=== PATIENT | female | born 1970 | race Caucasian/White ===

== ENCOUNTER 2016-12-17 06:45 | Outpatient (CLI) | payer OTHER ==
[2016-12-17 08:24] LABS: Hemoglobin 15.6 g/dL (12.0-16.0); Mean Corpuscular HGB CONC 32.8 g/dL (32.0-36.0); Mean Corpuscular Volume 97.7 fl (81.0-99.0); Platelet Count 318 thou/uL (130-400); RBC Distribution Width 11.3 % (11.5-14.5); Red Blood Cell (RBC) Count 4.89 mill/uL (4.20-5.40); White Blood Cell (WBC) Count 10.3 thou/uL (4.8-10.8)
[2016-12-17 08:39] LABS: Anion Gap 16 mmol/L (10-20); BUN (Urea Nitrogen) 13 mg/dL (7.0-18.7); Calc. Creatinine Clearance 0 mL/min (70-130); Calcium 9.7 mg/dL (7.8-10.44); Carbon Dioxide 24 mmol/L (22-29); Chloride 102 mmol/L (98-107); Estimated GFR-MDRD 74; Glucose 101 mg/dL (70-105); Potassium 4.3 mmol/L (3.5-5.1); Sodium 138 mmol/L (136-145)
[2016-12-17 08:59] LABS: Free T4 (Free Thyroxine) 0.9 ng/dL (0.70-1.48); Thyroid Stimulating Hormone 2.1901 uIU/mL (0.35-4.94); Vitamin D, 25 Hydroxy 13.8 ng/mL (> 30.0)
[2016-12-17 09:32] LABS: ALT (SGPT) 15 U/L (0-55); AST (SGOT) 13 U/L (5-34); Albumin 4.4 g/dL (3.5-5.0); Alkaline Phosphatase 57 U/L (40-150); Bilirubin, Direct 0.1 mg/dL (0.1-0.3); Bilirubin, Total 0.3 mg/dL (0.2-1.2); Protein, Total 6.9 g/dL (6.0-8.3)
[2016-12-17 10:02] LABS: Cardiac Risk 4.4 (Less than 4.5); Cholesterol 191 mg/dL (< 200 Desired); HDL Cholesterol 43 mg/dL (>60 Neg Risk); LDL Cholesterol, Calculated 117 mg/dL; Triglycerides 156 mg/dL (Less than 150)
[2016-12-17 17:43] LABS: Ferritin 119.77 ng/mL (10-291)
[2016-12-17 21:26] LABS: Iron 151 ug/dL (50-170); Iron Binding Capacity, Total 276 mcg/dL (265-497)
== END 2016-12-17 06:46 | disposition home or self-care (01) ==
LOC: BURLAB 06:45
PROVIDERS: ATTEND Internal Medicine
DX: Z00.00 Encounter for general adult medical examination without abnormal findings (principal); E78.01 Familial hypercholesterolemia; E11.9 Type 2 diabetes mellitus without complications; D64.9 Anemia, unspecified; E03.9 Hypothyroidism, unspecified; E55.9 Vitamin D deficiency, unspecified; E53.8 Deficiency of other specified B group vitamins; Z79.899 Other long term (current) drug therapy
CPT/HCPCS: 36415; 80048; 80061; 80076; 82306; 82607; 82728; 83036; 83540; 83550; 84439; 84443; 85027